=== PATIENT | female | born 2000 | race Caucasian/White ===

== ENCOUNTER 2020-11-18 11:31 | Emergency (ER) | payer OTHER, SELFPAY ==
--- NOTE | ~2020-11-18 | CT_ITS ---
EXAMINATION: CT abdomen pelvis w con INDICATION: Post coital pelvic pain TECHNIQUE: Computed tomographic images of the abdomen and pelvis were obtained after the administrati on of 100 cc of Omnipaque 350 intravenous contrast. The dose-length product (DLP) was 219.51 mGy-cm. Automated exposure control and iterative reconstruction technique were employed. COMPARISON: None available FINDINGS: The lung bases are clear. The heart size is normal. The liver, spleen, pancreas, gallbladde r, and adrenal glands are normal. The kidneys are unremarkable. No pathologically enlarged abdominal or pelvic lymph nodes are identified. There is no free intraperitoneal gas or evidence of bowel obstr uction. A septate uterus is noted. There is a small amount of free fluid in the pelvis, likely physio logic. IMPRESSION: 1. No CT correlate for the patient's symptoms. Reviewed, dictated and finalized at location A.
--- NOTE | ~2020-11-18 | US_ITS ---
EXAMINATION: US pelvic complete w TV DATE: 11/18/2020 15:45 INDICATION: Postcoital pelvic pain and vaginal bleeding TECHNIQUE: Multiple transabdominal and endovaginal sonographic images of the pelvis were obtained. COMPARISON: None. FINDINGS: The uterus measures 7.3 x 3.7 x 6.0 cm and appears to be septate. The endometrial complexes measure 5 mm. The right ovary measures 2.9 x 2.2 x 2.1 cm. The left ovary measures 4.0 x 1.7 x 1.6 c m. There is normal vascular flow in the ovaries. There is a small amount of likely physiologic free f luid in the pelvis. IMPRESSION: 1. No sonographic correlate for the patient's symptoms. 2. Septate uterus. Reviewed, dictated and finalized at location A.
[2020-11-18 11:49] VITALS: BP 116/65; PULSE 60; RESP 20; TEMP 37.2; O2SAT 100
[2020-11-18 12:10] LABS: Basophils Percent Auto 0.4 % (0.2-1.2); Eosinophils Absolute Auto 0.1 K/mm3 (0-0.3); Eosinophils Percent Auto 0.5 % (0-4.4); Hematocrit 41.5 % (37.0-47.0); Hemoglobin 13.9 g/dL (12.0-15.0); Immature Granulocyte Absolute 0.04 K/mm3 (0.00-0.031); Immature Granulocyte Percent A 0.4 % (0-0.5); Lymphocytes Absolute Auto 1.49 K/mm3 (0.9-3.2); Lymphocytes Percent Auto 15.4 % (18.3-44.2); Mean Corpuscular HGB Conc 33.5 g/dl (32-36); Mean Corpuscular Hemoglobin 30.2 pg (26-34); Mean Corpuscular Volume 90.2 fl (80-100); Mean Platelet Volume 10.4 fl (7.4-10.4); Monocytes Absolute Auto 0.5 K/mm3 (0.1-0.6); Neutrophils Absolute Auto 7.6 K/mm3 (1.3-6.7); Neutrophils Percent Auto 78.3 % (45.5-73.1); Platelet Count Result 268 k/mm3 (150-375); Red Cell Distribution Width 12.5 % (11.5-14.5); White Blood Count 9.7 K/mm3 (4.5-10.0)
[2020-11-18 12:23] LABS: Alanine Aminotransferase 18 U/L (4-35); Albumin Level 4.4 g/dL (3.5-5.1); Alkaline Phosphatase 40 U/L (38-126); Anion Gap 10 mmol/L (8-16); Aspartate Amino Transferase 24 U/L (14-36); Bilirubin,Total 0.6 mg/dL (0.2-1.3); Blood Urea Nitrogen 10 mg/dL (7-17); Calcium 9.4 mg/dL (8.4-10.2); Carbon Dioxide 21 mmol/L (22-30); Chloride 107 mmol/L (98-107); Estimated CRCL calculation 128 ml/min; Estimated Glomerular Filt Rate > 60; Glucose 86 mg/dL (65-110); Lipase 45 U/L (23-300); Potassium 4.2 mmol/L (3.4-5.0); Sodium 138 mmol/L (137-145)
[2020-11-18 14:35] LABS: Add Urine Microscopic? YES; Appearance Urine Cloudy (Clear); Bilirubin Urine Negative (Negative); Blood Urine 3+ (Negative); Color Urine Red (Yellow); Glucose Urine UA Negative (Negative); Ketones Urine 1+ mg/dL (Negative); Leukocyte Esterase Ur 1+ LEU/UL (Negative); Nitrate Urine Negative (Negative); Protein Urine 2+ mg/dL (Negative); RBC Urine >75 /hpf (0-2); Specific Grav Ur 1.028 (1.001-1.035); Urobilinogen Urine Negative mg/dL (<2.0); WBC Urine 31-50 /hpf
--- NOTE | 2020-11-18 14:50 | PC.NURSE ---
pt refusing iv placement, wanting to leave . provider aware nno. pt willing to talk to provider
[2020-11-18 15:10] VITALS: BP 119/66; PULSE 98; RESP 17; O2SAT 100
[2020-11-18 16:30] LABS: Pregnancy On Board Control Positive; Urine Pregnancy Test Negative
--- NOTE | 2020-11-18 16:44 | ED.ABDPAIN ---
HPI - Abdominal Pain General Chief Complaint: Abdominal Pain Stated Complaint: abdominal pain Time Seen by Provider: 11/18/20 13:18 Source: patient and RN notes reviewed Mode of arrival: ambulatory Limitations: no limitations History of Present Illness HPI narrative: Patient is 20 years old white female presented to the ED with lower abdominal pain and vaginal bleeding few minutes after having vaginal intercourse. Patient reported history of ovarian cyst. Patient denies any fever, chills, nausea, vomiting, urinary symptoms. Last menstrual. About 1-1/2-month ago. Patient is not vaccinated for COVID-19. Review of Systems Review of Systems: CONSTITUTIONAL: Denies fever, chills, or sweats. EYES: Denies visual changes, redness, or discharge. ENT: Denies rhinorrhea, congestion, sore throat, or otalgia. CARDIOVASCULAR: Denies chest pain, palpitations, or edema. RESPIRATORY: Denies cough or dyspnea. GASTROINTESTINAL: Denies abdominal pain, nausea, vomiting, or diarrhea. GENITOURINARY: Denies dysuria or hematuria. SKIN: Denies rash or itching. MUSCULOSKELETAL: Denies back pain, joint pain, or myalgia. NEUROLOGIC: Denies headache, numbness, or weakness. PSYCHIATRIC: Denies anxiety or depression. PMFSH Social History Social History Gender identity (if verbalized by the patient): Female Exam Narrative: General appearance: Well-developed, well-nourished Skin: Normal color Head: Normocephalic, nontraumatic Eyes: Clear conjunctiva ENT: Oropharynx normal, ears normal, nose normal Neck: Supple, nontender Chest and respiratory: Airway patent, no respiratory distress, no accessory muscle use Heart: Regular rate/rhythm Abdomen: Soft, slight tenderness lower abdomen bilaterally, no guarding or rebound, no organomegaly, quiet bowel sounds Vascular: Normal peripheral pulses, normal capillary refill. Musculoskeletal: Normal range of motion, nontender back Neurologic: Alert and oriented ?3, WAITER/WAITRESS HEAD is normal as tested, no gross motor deficit : External Female Exam: normal external appearance and normal appearance of the urethra Speculum Exam - Vagina: normal appearance of the vagina and vaginal bleeding (Fresh red bright blood, 1 long Q-tip was enough to dry the whole vaginal ) Speculum Exam - Cervix: normal appearance of the cervix, normal palpation and Cervical os closed Bimanual exam- vagina & uterus: normal bimanual exam Course Course Emergency Course: Stable Vital Signs Vital signs: Vital Signs Temperature 37.2 C 11/18/20 11:49 Pulse Rate 60 11/18/20 11:49 Respiratory Rate 20 11/18/20 11:49 Blood Pressure 116/65 11/18/20 11:49 Pulse Oximetry 100 11/18/20 11:49 Temperature 37.2 C 11/18/20 11:49 Pulse Rate 78 11/18/20 16:58 Respiratory Rate 16 11/18/20 16:58 Blood Pressure 124/68 11/18/20 16:58 Pulse Oximetry 98 11/18/20 16:58 MDM - Abdominal Pain MDM Narrative Medical decision making narrative: Patient presents with vaginal bleeding and lower abdominal pain few minutes after having vaginal intercourse. Last menstrual period over 1 and half month ago. , miscarriage, ectopic , dysmenorrhea are my concern. Patient is telling me that she have history of painful menstruation for years. Labs, IV fluid, CT abdomen pelvis with IV contrast ordered Differential Diagnosis Differential diagnosis: Likely abdominal pain, acute appendicitis, constipation and diverticulitis Lab Data Result diagrams: 11/18/20 12:00 11/18/20 12:00 Labs: Lab Results 11/18/20 11/18/20 11/18/20 Range/Units 12:00 12:00 14:16 WBC 9.7 (4.5-10.0) K/mm3
[2020-11-18 16:58] VITALS: BP 124/68; PULSE 78; RESP 16; O2SAT 98
--- NOTE | 2020-11-18 17:01 | PC.NURSE ---
pt accepting of iv placment for ct scan. placed in right ac. call to ct scan, will be here shortly to take the pt
[2020-11-18 18:54] VITALS: BP 136/84; PULSE 84; RESP 16; O2SAT 99
== END 2020-11-18 18:54 | disposition home or self-care (01) ==
PROVIDERS: Emergency Provider Emergency Medicine
DX: N39.0 Urinary tract infection, site not specified (principal); N93.8 Other specified abnormal uterine and vaginal bleeding; Q51.28 Other and unspecified doubling of uterus
CPT/HCPCS: 36415; 74177; 76830; 76856; 80053; 81001; 81025; 83690; 85025; 87086; 87088; 99284; Q9967

== ENCOUNTER 2021-04-23 18:33 | Emergency (ER) | payer OTHER, SELFPAY ==
[2021-04-23 18:36] VITALS: BP 100/59; PULSE 128; RESP 20; TEMP 36.5; O2SAT 100
[2021-04-23 20:33] VITALS: BP 109/77; PULSE 126; RESP 20; TEMP 37.2; O2SAT 100
--- NOTE | 2021-04-23 20:50 | PC.NURSE ---
Pt ambulates out of ED prior to seeing provider around 2049. No sign of distress at this time.
== END 2021-04-23 23:02 | disposition left against medical advice (07) ==
LOC: ANHED 23:00
DX: O26.891 Other specified pregnancy related conditions, first trimester (principal); R10.9 Unspecified abdominal pain
CPT/HCPCS: 99199

== ENCOUNTER 2021-10-31 06:31 | Inpatient (IN) | payer OTHER, SELFPAY ==
[2021-10-31] VITALS (88 sets, daily range): BP systolic 74–131; BP diastolic 27–104; PULSE 55–145; RESP 16–18; TEMP 36.7–37.1; O2SAT 96–100; BMI 23.8
--- OUTSIDE RECORDS SUMMARY | 2021-10-31 06:37 | XMS_ITS | Encounter Summary ---
:2000 Author Reason for Visit OB visit Assessment and Plan 1. Routine care Discussion Note: None recorded.Patient educational handouts: No information available. Plan of Care Reminders Provider Appointments None recorded. ? ? Lab None recorded. ? ? Referral None recorded. ? ? Procedures None recorded. ? ? Surgeries None recorded. ? ? Imaging None recorded. ? ? Medications Name Start Date ? ? ? Medications Administered None recorded. Vitals Height Weight BMI Blood Pressure 5 ft 6.5 in 157 lbs 25 kg/m2 103/72 mm[Hg] Results Lab Results None recorded. Allergies Code Code System Name Reaction Severity Onset NKDA ? ? ? Problems Name Status Onset Date Source ? Active 10/15/2021 ? Procedures Date Name Performed by ? 10/17/2021 , Obstetric, Follow-up [facility] [address] [place] [address] (Work Place) Vaccine List None recorded. Social History Tobacco Smoking Status Former Smoker What type of diet are you following? REGULAR Do you have difficulty walking or N climbing stairs? Are you able to walk? YESWOREST Has tobacco cessation counseling been N provided? Are you able to care for yourself? Y Have you used IV drugs? N
--- OUTSIDE RECORDS SUMMARY | 2021-10-31 06:38 | XMS_ITS | Encounter Summary ---
:2000 Author Reason for Visit new OB NEW PATIENT NEW OB [id number] EDC 11/07/2021 LMP 12/23/2020 Assessment and Plan 1. Routine care Discussion [...] BMI Blood Pressure 5 ft 6.5 in 159 lbs 25.3 kg/m2 113/76 mm[Hg] Results Lab Results None recorded. Allergies Code Code System Name Reaction Severity Onset NKDA ? ? ? Problems Name Status Onset Date Source ? Active 10/15/2021 ? Procedures None recorded. Vaccine List None recorded. Social History Tobacco Smoking Status Former Smoker What type of diet are you following? REGULAR Do you have difficulty walking or N climbing stairs? Are you able to walk? YESWOREST Has tobacco cessation counseling been N provided? Are you able to care for yourself? Y Have you used IV drugs? N Are you blind or do you have N difficulty seeing? Do you have smoke and carbon monoxide Y detectors in your home? In t
--- OUTSIDE RECORDS SUMMARY | 2021-10-31 06:38 | XMS_ITS | Encounter Summary ---
:2000 Author Reason for Visit None recorded. Assessment and Plan 1. Uterine size for dates discrepancy ? US, obstetric, follow-up Discussion Note: None recorded.Patient educational handouts: No information available. Plan of Care Reminders Provider Appointments None recorded. ? ? Lab None recorded. ? ? Referral None recorded. ? ? Procedures None recorded. ? ? Surgeries None recorded. ? ? Imaging US, Obstetric, Follow-up 10/17/2021 Bradly allen Medications Name Start Date ? ? ? Medications Administered None recorded. Vitals None recorded. Results Lab Results None recorded. Allergies Code Code System Name Reaction Severity Onset NKDA ? ? ? Problems Name Status Onset Date Source ? Active 10/15/2021 ? Procedures Date Name Performed by ? 10/17/2021 US, Obstetric, Follow-up [facility] [address] [place] [address] (Work Place) Vaccine List None recorded. Social History Tobacco Smoking Status Former Smoker What type of diet are you following? REGULAR Do you have difficulty walking or N climbing stairs? Are you able to walk? YESWOREST Has tobacco cessation counseling been N provided? Are you able to care for yourself? Y Have you used IV drugs? N Are you b
--- OUTSIDE RECORDS SUMMARY | 2021-10-31 06:38 | XMS_ITS | Encounter Summary ---
[...] ft 6.5 in 159 lbs 25.3 kg/m2 103/71 mm[Hg] Results Lab Results None recorded. Allergies Code Code System Name Reaction Severity Onset NKDA ? ? ? Problems Name Status Onset Date Source ? Active 10/15/2021 ? Procedures Date Name Performed by ? 10/17/2021 , Obstetric, Follow-up [facility] [address] [place] [address] (Work Place) Vaccine List [...]
[2021-10-31 07:13] LABS: Basophils Percent Auto 0.3 % (0.2-1.2); Eosinophils Percent Auto 0.5 % (0-4.4); Hematocrit 38.7 % (37.0-47.0); Hemoglobin 13.2 g/dL (12.0-15.0); Immature Granulocyte Absolute 0.02 K/mm3 (0.00-0.031); Immature Granulocyte Percent A 0.3 % (0-0.5); Lymphocytes Absolute Auto 1.81 K/mm3 (0.9-3.2); Mean Corpuscular HGB Conc 34.1 g/dl (32-36); Mean Corpuscular Volume 90.8 fl (80-100); Mean Platelet Volume 10.9 fl (7.4-10.4); Monocytes Absolute Auto 0.4 K/mm3 (0.1-0.6); Monocytes Percent Auto 5.8 % (2.6-8.5); Neutrophils Absolute Auto 5.2 K/mm3 (1.3-6.7); Neutrophils Percent Auto 69.1 % (45.5-73.1); Platelet Count Result 192 k/mm3 (150-375); Red Blood Count 4.26 M/mm3 (4.2-5.4); Red Cell Distribution Width 14.2 % (11.5-14.5); White Blood Count 7.5 K/mm3 (4.5-10.0)
--- NOTE | 2021-10-31 07:29 | WPDOBADMIT ---
Obstetrics - Admit Note Admission Note: record reviewed. No pertinent additions to the history and/or any subsequent changes in the physical findings that are not consistent with the expected course of the were found. IOL SVE /-2 AROM moderate amount of clear odorless fluid Additions to the history and/or subsequent changes in the physical findings follow. None.
[2021-10-31] MEDS: OXYTOCIN 30 UNITS/NS 500 ML 30 UNITS/500 ML BAG 6 UNITS IV CONT (08:04)
[2021-10-31] MEDS: LACTATED RINGERS 1,000 ML 125 ML IV CONT ×2 (08:04→10:30)
--- NOTE | 2021-10-31 09:01 | WPDANESEPP ---
Anes - Eval Pre Procedure Procedure: labor epidural Date/Time: 10/31/21 09:01 Surgeon: sunny Preop Diagnosis: pain during labor Pre Op Diagnosis: IOL Patient Data Age: 21 Gender: F Height: 1.73 m Weight: 71 kg Last Vital Signs Temp 36.9 C 10/31/21 07:30 Pulse 57 L 10/31/21 09:00 BP 119/75 10/31/21 09:00 Allergies Allergy/AdvReac Type Severity Reaction Status Date / Time No Known Allergies Allergy Verified 10/30/21 12:55 Home Medications Medication Instructions Recorded Confirmed Type vit no.95-ferrous 1 tablet PO DAILY 10/31/21 10/31/21 History fumarate 28 mg-folic acid 800 mcg tablet () Laboratory Tests 10/31/21 10/31/21 10/31/21 06:52 06:52 06:52 WBC 7.5 K/mm3 K/mm3 (4.5-10.0) RBC 4.26 M/mm3 M/mm3 (4.2-5.4) Hgb 13.2 g/dL g/dL (12.0-15.0) Hct 38.7 % % (37.0-47.0) MCV 90.8 fl fl (80-100) MCH 31.0 pg pg (26-34) MCHC 34.1 g/dl g/dl (32-36) RDW 14.2 % % (11.5-14.5) Plt Count 192 k/mm3 k/mm3 (150-375) MPV 10.9 fl H fl (7.4-10.4) Immature Gran % (Auto) 0.3 % % (0-0.5) Neut % (Auto) 69.1 % % (45.5-73.1) Lymph % (Auto) 24.0 % % (18.3-44.2) [place] % (Auto) 5.8 % % (2.6-8.5) Eos % (Auto) 0.5 % % (0-4.4) Baso % (Auto) 0.3 % % (0.2-1.2) Lymph # (Auto) 1.81 K/mm3 K/mm3 (0.9-3.2) [place] # (Auto) 0.4 K/mm3 K/mm3 (0.1-0.6) Eos # (Auto) 0.0 K/mm3 K/mm3 (0-0.3) Baso # (Auto) 0.0 K/mm3 K/mm3 (0.0-0.1) Abs Immat Gran (auto) 0.02 K/mm3 K/mm3 (0.00-0.031) Absolute Neuts (auto) 5.2 K/mm3 K/mm3 (1.3-6.7) Absolute Nucleated RBC 0.0 K/mm3 K/mm3 (0.0-0.012) Nucleated RBC % 0.0 % % (0.0-0.2) RPR Pending Blood Type A Positive Antibody Screen Negative Patient hx anesthesia problems: none Family hx anesthesia problems: none Results Review: All pre-operative results and documents have been reviewed as part of the pre-operative evaluation. COUNTS INCLUDE 234 BEDS AT THE [facility] Past Medical History Medical History (Updated 10/31/21 @ 09:01 by Jyoti Gilbert CRNA) IUP (intrauterine ), incidental Family History Family History (Updated 10/30/21 @ 12:57 by Alexandrea Streeter RN) Mother History of blood clots Social History Social History Smoking status: Former smoker Tobacco type: cigarettes Second hand tobacco smoke exposure: Yes Substance use: never Gender identity (if verbalized by the patient): Female Spiritual care concerns: No Exam Day of Procedure 10/31/21 09:01
[2021-10-31 09:19] LABS: Rapid Plasma Reagin Non-Reactive (NonReactive)
[2021-10-31] MEDS: fentaNYL CITRATE INJ (*CRX) 100 MCG/2 ML VIAL IV PUSH (13:12)
[2021-10-31] MEDS: OXYTOCIN 30 UNITS/NS 500 ML 30 UNITS/500 ML BAG 125 UNITS IV CONT (13:28)
--- NOTE | 2021-10-31 13:52 | PM.OBPRVD ---
OB - Delivery Note Procedure Procedure: with manual removal of placenta Events: Other (Late transfer of care) Induction method: AROM and Per Pitocin Protocol Delivery monitor: External FHT, External Uterine and Internal Uterine Route of delivery: Laceration Description: Perineal - 2nd Degree Delivery repair: vicryl Specimen: Yes Quantitative Blood Loss (ml): 449 Anesthesia type: Epidural Disposition: Floor Complications: Gush of blood noted that seemed to indicate placental separation. Gentle traction applied and cord was detached. Small fragments of placenta and membranes came out. Manual removal attempted. 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 Difficulty getting to fundus. Small fragments coming out. Dr Porras called for assistance. Once in the room he was able to remove the rest of the placenta after a few attempts and use of curette. Pt's pain well controlled. Bleeding minimal during entire process. Once placenta was removed I took back over to complete repair of laceration. Fundus remained firm and bleeding scant. Baby Date of : 10/31/21 Weeks of gestation at delivery: 39 Infant gender: Female Weight (pounds): 7 Weight (ounces): 0 presentation: vertex position: Left Occiput Anterior Placenta delivery description: Spontaneous Cord Vessel Description: Delayed Cord Clamping
[2021-10-31] MEDS: cefoTEtan DISODIUM INJ 2 GM in DEXTROSE 5% IN WATER 50 ML IVPB (14:34)
--- NOTE | 2021-10-31 16:55 | PC.NURSE ---
Patient transferred to post room #281 via wheelchair. Support person present. Oriented to unit, room, information board, rooming in, admission packet and security measures. Patient verbalizes understanding.
[2021-10-31] MEDS: BENZOCAINE 20% AER SPR (*SP) 56 GM CAN 1 SPRAY TOPICAL (17:05)
[2021-10-31] MEDS: WITCH HAZEL 40 PADS 1 PAD TOPICAL (17:06)
[2021-11-01] MEDS: IBUPROFEN 600 MG TABLET PO ×2 (00:45→09:40)
[2021-11-01 01:30] VITALS: BP 90/56; PULSE 75; RESP 18; TEMP 36.6
[2021-11-01] MEDS: cefoTEtan DISODIUM INJ 2 GM in DEXTROSE 5% IN WATER 50 ML IVPB ×2 (02:32→14:20)
[2021-11-01] MEDS: SODIUM CHLORIDE 0.9% IV 100 ML 200 ML (02:33)
[2021-11-01 04:25] VITALS: BP 84/51; PULSE 50; RESP 16; TEMP 36.4
[2021-11-01 05:11] LABS: Hematocrit 33.7 % (37.0-47.0); Hemoglobin 11.2 g/dL (12.0-15.0)
--- NOTE | 2021-11-01 08:41 | PC.NURSE ---
0830 - At 0822 is at the nurses desk. 0830 RN takes infant to the mother's room to assess mother's feeding plan. Introductions were made, I.D. # matched with mother. Mother states she desires to breastfeed and states I didn't know what to say at the preadmit so I said bottle feed . Mother demonstrates unfamiliarity of moving and holding her infant. Encouraged understanding of the benefits of skin to skin (unwrapping and placing vertically on her chest), responsive feeding and how to watch for early feeding signs, frequency of feeding on demand about every 8-12 times in 24 hours (every 2-3 hours), milk production, duration of feeding, signs of adequate intake/output and how to record on the feeding sheet. Reviewed positioning and ear, shoulder, hip alignment, supporting the breast, asymmetrical latch (off-center), and leading with the chin with a big open side gape. latched optimally to the right breast in football position. Education given to mother of how to visualize suck/swallow ratios and drinking at the breast. Infant was able to maintain latch without discomfort to mother. Nipple care reviewed with optimal latch and good positioning with assistance. Resources used to facilitate learning were used with the mom and baby guide. Mother voiced understanding of responsive feedings, stimulating with skin to skin, talking to infant to encourage if it has been 2 -3 hours since the start of the last , to call if infant does not latch or there is discomfort with . Education reinforcement and encouragement is needed. Reported to the primary RN.
[2021-11-01 09:05] VITALS: BP 101/61; PULSE 60; RESP 16; TEMP 36.4; O2SAT 99
[2021-11-01] MEDS: MULTIVIT/MIN/PREN/FOL AC/IRON TABLET 1 TAB PO (09:40)
[2021-11-01] MEDS: DOCUSATE SODIUM 100 MG CAPSULE PO (09:40)
[2021-11-01 12:01] VITALS: BP 100/71; PULSE 92; RESP 18; TEMP 36.8; O2SAT 99
--- NOTE | 2021-11-01 12:43 | WPDANLDPN2 ---
Anes-Prog Note L&D Date/Time: 11/01/21 12:43 Comfortable throughout: labor Neuraxial method: epidural Epidural/Spinal procedure site: tender Neuro status: Neuro function grossly intact. Cardiovascular status: normal Respiratory status: normal Airway patency: baseline Mental status: baseline Post-Op hydration status: normal Vital Signs: Last Vital Signs Temp 98.2 F 11/01/21 12:01 Pulse 92 11/01/21 12:01 Resp 18 11/01/21 12:01 BP 100/71 11/01/21 12:01 Pulse Ox 99 11/01/21 12:01 O2 Del Method Room Air 10/31/21 17:05 Pain score (VAS): 0 I/O: Intake & Output 10/31/21 11/01/21 11/01/21 23:59 07:59 15:59 Intake Total 2240 80 240 Output Total 85 Balance 2155 80 240 Patient feedback: Patient satisfied with anesthetic care.
--- NOTE | 2021-11-01 15:18 | PCCCNOTE ---
Care Coordination met with pt., FOB, and pt.'s mother. Pt. states her current D/C plan is to return home with FOB. Pt. is independent with ADLs and ambulation. Pt. has no medical equipment at home. She has everything needed to safely bring baby home. Pt. states interest in breast feeding, CC answered questions regarding WIC and obtaining a breast pump. Pt. denies any open or prior DCFS cases. Pt. and FOB of baby have been appropriate during hospitalization and are bonding well with baby. Pt.'s RN had concerns regarding pt.'s flat affect, CC has no further concerns at this time.
[2021-11-01 19:00] VITALS: BP 96/66; PULSE 70; RESP 14; TEMP 36.8; O2SAT 100
[2021-11-02] MEDS: IBUPROFEN 600 MG TABLET PO (04:48)
--- NOTE | 2021-11-02 07:34 | PM.OBPNVD ---
OB - PN: Subj Subjective Date/time seen: 11/02/21 07:34 s/p day 2 vaginal delivery OB - PN: Obj Data Labs CBC & Chem 7: 11/01/21 04:36 OB - PN A/P Plan day: 2 Time Spent With Patient Time: Total time spent is greater than 50% in coordination of care (as documented) at patient's floor/unit and/or counseling patient: Review of Systems Review of Systems: All systems reviewed & are unremarkable except as noted in HPI and below Exam Const: General: cooperative, healthy appearing and comfortable
--- NOTE | 2021-11-02 07:35 | P.DS_ITS ---
DS: Admitting Diagnosis Discharge Date 11/02/21 Admitting Diagnosis IOL OB - DS: Summary OB Procedures : None OB Procedures Intrapartum: Spontaneous Vag Delivery, Curettage and Retained placenta OB Procedures: : None Time Spent with Patient Time attestation: Total time spent providing and/or coordinating discharge services: DS: Data Data Completed and Pending Pending studies at discharge: Pending at discharge 10/31/21 14:52 Surgical [PTH] Routine Discharge Plan Discharge Attending physician on discharge: Day Porras Discharging Clinician: Johana Clark Patient Disposition: Home, Self-Care Activity: pelvic rest Diet: regular Stand Alone Forms: General Discharge Information Follow-up/Referrals: Maite Esposito CNM [Certified Nurse Blood Bank Specialist] - 4 Weeks Discharge Medications: No Action PNV cmb#95-ferrous fumarate-FA [] 28 mg iron- 800 mcg Tablet 1 tablet PO DAILY Date of admission: 10/31/21 06:31 Primary Care Provider: PHYSICIAN,LICENSED PROSTHETIST Admitting Provider: Day Porras Attending physician on admission: Day Porras Condition: Stable
[2021-11-02 08:00] VITALS: BP 100/62; PULSE 60; RESP 16; TEMP 36.6; O2SAT 100
--- NOTE | 2021-11-02 09:00 | PC.NURSE ---
Patient viewed the discharge video Mother & Baby Care, The First Two Weeks . Patient was given the opportunity and encouraged to ask questions. Patient verbalized understanding of information shared and has been given the mother/baby guide for home reference.
[2021-11-02] MEDS: DOCUSATE SODIUM 100 MG CAPSULE PO (09:04)
[2021-11-02] MEDS: MULTIVIT/MIN/PREN/FOL AC/IRON TABLET 1 TAB PO (09:05)
[2021-11-05 11:27] VITALS: BP 101/68; PULSE 78; RESP 16; TEMP 36.8; O2SAT 99
== END 2021-11-02 12:43 | disposition home or self-care (01) | DRG 541 ==
LOC: ANHLDR 06:44 → ANHOB2 16:56
PROVIDERS: Advanced Practice Midwife; Admitting Provider Obstetrics & Gynecology; Visit Provider Obstetrics & Gynecology
DX: O69.81X0 Labor and delivery complicated by cord around neck, without compression, not applicable or unspecified (principal); O34.03 Maternal care for unspecified congenital malformation of uterus, third trimester; O70.1 Second degree perineal laceration during delivery; Q51.3 Bicornate uterus; O73.0 Retained placenta without hemorrhage; Z3A.39 39 weeks gestation of pregnancy; Z37.0 Single live birth
CPT/HCPCS: 36415; 85014; 85018; 85025; 86592; 86850; 86900; 86901; 88307; A9270; J2590; J2795; J3010; J7120

== ENCOUNTER 2023-08-23 11:26 | Inpatient (IN) | payer OTHER, SELFPAY ==
[2023-08-23] VITALS (125 sets, daily range): BP systolic 89–145; BP diastolic 44–122; PULSE 52–162; RESP 18; TEMP 36.4–36.7; O2SAT 95–100; BMI 25.0
[2023-08-23] MEDS: LACTATED RINGERS 1,000 ML 125 ML IV CONT ×2 (12:01→12:38)
[2023-08-23 12:05] LABS: Basophils Percent Auto 0.4 % (0.2-1.2); Eosinophils Percent Auto 0.3 % (0-4.4); Hematocrit 39.8 % (37.0-47.0); Hemoglobin 13.3 g/dL (12.0-15.0); Immature Granulocyte Absolute 0.04 K/mm3 (0.00-0.031); Immature Granulocyte Percent A 0.4 % (0-0.5); Lymphocytes Absolute Auto 1.82 K/mm3 (0.9-3.2); Lymphocytes Percent Auto 20.1 % (18.3-44.2); Mean Corpuscular HGB Conc 33.4 g/dl (32-36); Mean Corpuscular Hemoglobin 30.4 pg (26-34); Mean Corpuscular Volume 90.9 fl (80-100); Monocytes Absolute Auto 0.7 K/mm3 (0.1-0.6); Monocytes Percent Auto 7.2 % (2.6-8.5); Neutrophils Absolute Auto 6.5 K/mm3 (1.3-6.7); Neutrophils Percent Auto 71.6 % (45.5-73.1); Platelet Count Result 183 k/mm3 (150-375); Red Blood Count 4.38 M/mm3 (4.2-5.4); Red Cell Distribution Width 13.6 % (11.5-14.5)
[2023-08-23] MEDS: fentaNYL CITRATE INJ (*CRX) 100 MCG/2 ML VIAL IV PUSH (12:11)
--- NOTE | 2023-08-23 12:16 | LDADM ---
This patient, Den Swan, was admitted to Labor/Delivery/Recovery 105 on 08/23/23 at 11:26. Plans for labor, pain management and were discussed with patient. Patient/family oriented to hospital policies and general routines including ID bracelet, bed and alarms, visiting hours, pain management, procedures, bathroom and other care routines, personal items, smoking policy, room service/diet and guest tray routines, infant security routines, and visiting hours. Patient/Family are encouraged to report perceived risks to care and to ask questions if they do not understand what they are told or what they should do. See OBIX for further documentation.
--- NOTE | 2023-08-23 12:43 | WPDANESEPP ---
Anes - Eval Pre Procedure Procedure: labor epidural Date/Time: 08/23/23 12:43 Preop Diagnosis: labor pain Pre Op Diagnosis: Spontaneous Labor Patient Data Age: 23 Gender: F Height: 1.75 m Weight: 77 kg Last Vital Signs Pulse 65 08/23/23 12:40 BP 110/76 08/23/23 12:40 Pulse Ox 99 08/23/23 12:41 O2 Del Method Room Air 08/23/23 12:14 Allergies Allergy/AdvReac Type Severity Reaction Status Date / Time No Known Allergies Allergy Verified 08/23/23 12:40 Home Medications Medication Instructions Recorded Confirmed Type vit no.95-ferrous 1 tablet PO BID 10/31/21 08/23/23 History fumarate 28 mg-folic acid 800 mcg tablet () lidocaine 4 % topical patch 1 patch topical DAILY PRN Pain 08/22/23 08/23/23 History (Lidocaine Pain Relief) Laboratory Tests 08/23/23 11:53 WBC 9.0 K/mm3 (4.5-10.0) RBC 4.38 M/mm3 (4.2-5.4) Hgb 13.3 g/dL (12.0-15.0) Hct 39.8 % (37.0-47.0) MCV 90.9 fl (80-100) MCH 30.4 pg (26-34) MCHC 33.4 g/dl (32-36) RDW 13.6 % (11.5-14.5) Plt Count 183 k/mm3 (150-375) MPV 12.0 H fl (7.4-10.4) Immature Gran % (Auto) 0.4 % (0-0.5) Neut % (Auto) 71.6 % (45.5-73.1) Lymph % (Auto) 20.1 % (18.3-44.2) [place] % (Auto) 7.2 % (2.6-8.5) Eos % (Auto) 0.3 % (0-4.4) Baso % (Auto) 0.4 % (0.2-1.2) Lymph # (Auto) 1.82 K/mm3 (0.9-3.2) [place] # (Auto) 0.7 H K/mm3 (0.1-0.6) Eos # (Auto) 0.0 K/mm3 (0-0.3) Baso # (Auto) 0.0 K/mm3 (0.0-0.1) Abs Immat Gran (auto) 0.04 H K/mm3 (0.00-0.031) Absolute Neuts (auto) 6.5 K/mm3 (1.3-6.7) Absolute Nucleated RBC 0.000 K/mm3 (0.0-0.012) Nucleated RBC % 0.0 % (0.0-0.2) RPR Pending Blood Type Pending Antibody Screen Pending Patient hx anesthesia problems: none Family hx anesthesia problems: none Results Review: All pre-operative results and documents have been reviewed as part of the pre-operative evaluation. [facility] Past Medical History Medical History IUP (intrauterine ), incidental Family History Family History Mother History of blood clots Social History Social History Smoking status: Never smoker Tobacco type: cigarettes Second hand tobacco smoke exposure: Yes Substance use: never Do You Feel Safe in your Home?: Yes Lack of Transportation: No Lack of Food: Never True Current Housing: I Have Housing Concerned About Future Housing: No Difficulty Paying Gas/Electric Bills: No Difficulty Paying for Meds: No Currently Unemployed: No Education: High School Diploma/GED Difficulty w/ Childcare or Family Care: No Gender identity (if verbalized by the patient): Female Spiritual care concerns: No Exam Day of Procedure 08/23/23 12:43
--- NOTE | 2023-08-23 15:24 | PM.IMHP ---
H&P: HPI History of Present Illness Date/Time: 08/23/23 15:24 Chief Complaint: Regular contractions Narrative: Patient is a 23 year old at 39w0d who presents with regular painful contractions after SROM of clear fluid at 1100. She denies bleeding. Good movement. has been uncomplicated otherwise. She denies fevers, chills, dysuria. Review of Systems Review of Systems: All systems reviewed & are unremarkable except as noted in HPI and below PMFSH Past Medical History Medical History IUP (intrauterine ), incidental Family History Family History Mother History of blood clots Social History Social History Smoking status: Never smoker Tobacco type: cigarettes Second hand tobacco smoke exposure: Yes Substance use: never Do You Feel Safe in your Home?: Yes Lack of Transportation: No Lack of Food: Never True Current Housing: I Have Housing Concerned About Future Housing: No Difficulty Paying Gas/Electric Bills: No Difficulty Paying for Meds: No Currently Unemployed: No Education: High School Diploma/GED Difficulty w/ Childcare or Family Care: No Gender identity (if verbalized by the patient): Female Spiritual care concerns: No Meds Home Medications and Allergies Home Medications Medication Instructions Recorded Confirmed Type vit no.95-ferrous 1 tablet PO BID 10/31/21 08/23/23 History fumarate 28 mg-folic acid 800 mcg tablet () lidocaine 4 % topical patch 1 patch topical DAILY PRN Pain 08/22/23 08/23/23 History (Lidocaine Pain Relief) Allergies Allergy/AdvReac Type Severity Reaction Status Date / Time No Known Allergies Allergy Verified 08/23/23 12:40 Vital Signs Vital Signs - 24 hr 08/23/23 12:00 08/23/23 12:14 08/23/23 12:15 Temperature Pulse Rate 61 77 75 Blood Pressure 118/78 104/83 108/82 Pulse Oximetry Oxygen Delivery 08/23/23 12:33 08/23/23 12:36 08/23/23 12:38 Temperature Pulse Rate 69 69 Blood Pressure 116/72 120/74 Pulse Oximetry 100 Oxygen Delivery 08/23/23 12:40 08/23/23 12:41 08/23/23 12:42 Temperature Pulse Rate 65 65 Blood Pressure 110/76 112/72 Pulse Oximetry 99 Oxygen Delivery 08/23/23 12:45 08/23/23 12:46 08/23/23 12:47 Temperature Pulse Rate 68 64 Blood Pressure 116/96 H 121/78 Pulse Oximetry 100 Oxygen Delivery 08/23/23 12:50 08/23/23 12:52 08/23/23 12:52 Temperature Pulse Rate 71 Blood Pressure 119/77 Pulse Oximetry 99 99 99 Oxygen Delivery 08/23/23 12:52 08/23/23 12:52 08/23/23 12:55 Temperature Pulse Rate 65 64 Blood Pressure 117/71 115/71 Pulse Oximetry Oxygen Delivery 08/23/23 12:57 08/23/23 12:58 08/23/23 13:00 Temperature Pulse Rate 68 71 76 Blood Pressure 110/68 114/71 110/45 L Pulse Oximetry 98 Oxygen Delivery 08/23/23 13:02 08/23/23 13:03 08/23/23 13:05 Temperature Pulse Rate 80 74 Blood Pressure 108/47 L 112/72 Pulse Oximetry 98 Oxygen Delivery 08/23/23 13:07 08/23/23 13:10 08/23/23 13:12 Temperature Pulse Rate 78 71 66 Blood Pressure 112/61 111/70 114/63 Pulse Oximetry 98 99 Oxygen Delivery 08/23/23 13:15 08/23/23 13:18 08/23/23 13:20 Temperature Pulse Rate 64 64 65 Blood Pressure 110/77 115/59 L 111/66 Pulse Oximetry 98 100 Oxygen Delivery 08/23/23 13:23 08/23/23 13:25 08/23/23 13:27 Temperature Pulse Rate 84 141 H Blood Pressure 120/93 H 124/59 L 113/86 Pulse Oximetry 100 Oxygen Delivery 08/23/23 13:30 08/23/23 13:30 08/23/23 13:31 Temperature Pulse Rate 85 Blood Pressure 109/55 L Pulse Oximetry 97 97 Oxygen Delivery 08/23/23 13:32 08/23/23 13:35 08/23/23 13:38 Temperature Pulse Rate 68 162 H 78 Blood Pre
[2023-08-23] MEDS: fentaNYL CITRATE INJ (*CRX) 100 MCG/2 ML VIAL 50 MCG IV PUSH (16:09)
[2023-08-23] MEDS: OXYTOCIN 30 UNITS/NS 500 ML 30 UNITS/500 ML BAG 999 UNITS IV CONT (16:11)
--- NOTE | 2023-08-23 16:25 | PM.OBPRVD ---
OB - Vaginal Delivery Note Procedure Delivery date: 08/23/23 Induction method: None Delivery monitor: External FHT and External Uterine Route of delivery: Laceration Description: Perineal - 2nd Degree Delivery repair: vicryl Specimen: No Quantitative Blood Loss (ml): 300 Anesthesia type: Local (and epidural) Disposition: Floor Complications: No immediate complications Narrative: See H&P and notes for details on patient's admission and labor. She progressed to complete cervical dilation and at the appropriate time began pushing. With adequate expulsive efforts by the mother, the baby's head was delivered without difficulty. Nuchal cord was not present. The baby's right shoulder was anterior and delivered under the pubic symphysis without difficulty. The posterior shoulder and the rest of the baby delivered without difficulty. The umbilical cord was doubly clamped and cut after 60 seconds of delayed cord clamping. Care of the infant was then assumed by the nursing staff. Mother and infant are at this time in stable condition and doing well. Baby Date of : 08/23/23 Weeks of gestation at delivery: 39 Infant gender: Male Weight (pounds): 7 Weight (ounces): 14 presentation: vertex position: Left Occiput Anterior Placenta delivery description: Expressed Cord Vessel Description: 3 Vessels
[2023-08-23] MEDS: OXYTOCIN 30 UNITS/NS 500 ML 30 UNITS/500 ML BAG 125 UNITS IV CONT (16:42)
[2023-08-23] MEDS: IBUPROFEN 600 MG TABLET PO ×2 (17:32→23:14)
[2023-08-23] MEDS: ACETAMINOPHEN 325 MG TABLET 650 MG PO ×2 (19:09→23:14)
[2023-08-23] MEDS: WITCH HAZEL 40 PADS 1 PAD TOPICAL (19:10)
[2023-08-23] MEDS: BENZOCAINE 20% AER SPR (*SP) 56 GM CAN 1 SPRAY TOPICAL (19:10)
[2023-08-23 21:56] LABS: Glucose Point of Care 127 mg/dl (65-105)
[2023-08-23] MEDS: oxyCODONE/ACETAMINOPHEN (*CRX) 5-325 MG TABLET 1 TABLET PO (22:20)
[2023-08-24 04:00] VITALS: BP 111/73; PULSE 89; RESP 16; TEMP 36.9
[2023-08-24] MEDS: IBUPROFEN 600 MG TABLET PO ×3 (05:23→23:16)
[2023-08-24] MEDS: ACETAMINOPHEN 325 MG TABLET 650 MG PO ×2 (05:23→13:45)
[2023-08-24 05:47] LABS: Hematocrit 29.8 % (37.0-47.0); Hemoglobin 9.6 g/dL (12.0-15.0)
[2023-08-24 07:45] VITALS: BP 117/77; PULSE 65; RESP 16; TEMP 37; O2SAT 97
--- NOTE | 2023-08-24 08:52 | PM.OBPNVD ---
OB - PN: Subj Subjective Date/time seen: 08/24/23 08:52 Interval history: PPD#1 Doing well, pain improved from last night Voiding without issue Tolerating general diet Ready for discharge home today OB - PN: Obj Data Labs 08/24/23 05:43 Labs: Laboratory Results - last 24 hr 08/23/23 08/23/23 08/24/23 11:53 21:00 05:43 WBC 9.0 RBC 4.38 Hgb 13.3 9.6 L D Hct 39.8 29.8 L MCV 90.9 MCH 30.4 MCHC 33.4 RDW 13.6 Plt Count 183 MPV 12.0 H Immature Gran % (Auto) 0.4 Neut % (Auto) 71.6 Lymph % (Auto) 20.1 [place] % (Auto) 7.2 Eos % (Auto) 0.3 Baso % (Auto) 0.4 Lymph # (Auto) 1.82 [place] # (Auto) 0.7 H Eos # (Auto) 0.0 Baso # (Auto) 0.0 Abs Immat Gran (auto) 0.04 H Absolute Neuts (auto) 6.5 Absolute Nucleated RBC 0.000 Nucleated RBC % 0.0 POC Capillary Glucose 127 H Blood Type A Positive Antibody Screen Negative OB - PN A/P Assessment and Plan (1) (spontaneous vaginal delivery): Code(s): O80 - Encounter for full-term uncomplicated delivery Status: Acute Plan day: 1 Plan: routine care and discharge home Time Spent With Patient Time: Total time spent is greater than 50% in coordination of care (as documented) at patient's floor/unit and/or counseling patient: Review of Systems Review of Systems: All systems reviewed & are unremarkable except as noted in HPI and below Exam Const: General: comfortable and no acute distress Eyes: General: appearance normal, both eyes and all related structures Resp: Effort & Inspection: normal respiratory effort Cardio: Rate: regular rate Rhythm: regular rhythm Skin: General skin exam: normal color Extrem: General: normal to inspection Psych: Mental Status: mental status grossly normal
--- NOTE | 2023-08-24 08:54 | PM.OBDSVD ---
DS: Admitting Diagnosis Discharge Date 08/24/23 Admitting Diagnosis normal labor DS: Discharge Diagnosis Discharge Diagnosis (1) (spontaneous vaginal delivery): Code(s): O80 - Encounter for full-term uncomplicated delivery Status: Acute OB - DS: Summary OB Procedures : None OB Procedures Intrapartum: Spontaneous Vag Delivery OB Procedures: : None Peripartum Data Laceration Description: Perineal - 2nd Degree Time Spent with Patient Time attestation: Total time spent providing and/or coordinating discharge services: DS: Data Data Completed and Pending Labs on day of discharge: Labs from last 24 hours 08/24/23 08/23/23 08/23/23 05:43 21:00 11:53 WBC 9.0 RBC 4.38 Hgb 9.6 L D 13.3 Hct 29.8 L 39.8 MCV 90.9 MCH 30.4 MCHC 33.4 RDW 13.6 Plt Count 183 MPV 12.0 H Immature Gran % (Auto) 0.4 Neut % (Auto) 71.6 Lymph % (Auto) 20.1 [place] % (Auto) 7.2 Eos % (Auto) 0.3 Baso % (Auto) 0.4 Lymph # (Auto) 1.82 [place] # (Auto) 0.7 H Eos # (Auto) 0.0 Baso # (Auto) 0.0 Abs Immat Gran (auto) 0.04 H Absolute Neuts (auto) 6.5 Absolute Nucleated RBC 0.000 Nucleated RBC % 0.0 POC Capillary Glucose 127 H RPR Pending Blood Type A Positive Antibody Screen Negative Discharge Plan Discharge Attending physician on discharge: Jair Varner Discharging Clinician: Jair Varner Patient Disposition: Home, Self-Care Activity: may shower and pelvic rest Diet: as tolerated Patient Instructions: Antibiotic Form Stand Alone Forms: General Discharge Information Follow-up/Referrals: Jair Varner MD [Physician] - 4 Weeks Discharge Medications: New docusate sodium 100 mg Capsule 100 mg PO BID PRN (Reason: Constipation) Qty: 60 0RF ibuprofen 600 mg Tablet 600 mg PO Q6H PRN (Reason: Cramping) Qty: 30 0RF Continued PNV cmb#95-ferrous fumarate-FA [] 28 mg iron- 800 mcg Tablet 1 tablet PO BID lidocaine [Lidocaine Pain Relief] 4 % Adhesive Patch,Medicated 1 patch TOPICAL DAILY PRN (Reason: Pain) Date of admission: 08/23/23 11:26 Primary Care Provider: UNKNOWN,DOCTOR Admitting Provider: Jair Varner Attending physician on admission: Jair Varner Condition: Stable
[2023-08-24] MEDS: POLYSACCHARIDE IRON COMPLEX 150 MG CAPSULE PO (09:27)
[2023-08-24] MEDS: MULTIVIT/MIN/PREN/FOL AC/IRON TABLET 1 TAB PO (09:27)
[2023-08-24] MEDS: DOCUSATE SODIUM 100 MG CAPSULE PO (09:34)
[2023-08-24 13:11] VITALS: BP 121/88; PULSE 65; RESP 18; TEMP 36.8; O2SAT 97
--- NOTE | 2023-08-24 14:58 | WPDANLDPN2 ---
Anes-Prog Note L&D Date/Time: 08/24/23 14:58 Comfortable throughout: labor and delivery Neuraxial method: epidural Epidural/Spinal procedure site: clean & non-tender Neuro status: Neuro function grossly intact. Cardiovascular status: normal Respiratory status: normal Airway patency: baseline Mental status: baseline Post-Op hydration status: normal Vital Signs: Last Vital Signs Temp 36.8 C 08/24/23 13:11 Pulse 65 08/24/23 13:11 Resp 18 08/24/23 13:11 BP 121/88 08/24/23 13:11 Pulse Ox 97 08/24/23 13:11 O2 Del Method Room Air 08/23/23 12:14 Pain score (VAS): 0/10 I/O: Intake & Output 08/23/23 08/24/23 08/24/23 23:59 07:59 15:59 Intake Total 100 Output Total 600 Balance -500 Post-procedural complaints: none Patient feedback: Patient satisfied with anesthetic care.
[2023-08-24 19:00] VITALS: BP 110/70; PULSE 82; RESP 18; TEMP 37.4; O2SAT 98
--- NOTE | 2023-08-25 07:32 | PM.OBPNVD ---
OB - PN: Subj Subjective Date/time seen: 08/25/23 07:32 Interval history: PPD#2 Pain controlled Voiding without issue Tolerating general diet , was cluster feeding overnight Ready for discharge home today OB - PN: Obj Data Labs 08/24/23 05:43 OB - PN A/P Plan day: 2 Plan: routine care and discharge home Time Spent With Patient Time: Total time spent is greater than 50% in coordination of care (as documented) at patient's floor/unit and/or counseling patient: Review of Systems Review of Systems: All systems reviewed & are unremarkable except as noted in HPI and below Exam Const: General: comfortable and no acute distress Eyes: General: appearance normal, both eyes and all related structures Resp: Effort & Inspection: normal respiratory effort Cardio: Rate: regular rate Rhythm: regular rhythm Skin: General skin exam: normal color Extrem: General: normal to inspection Psych: Mental Status: mental status grossly normal
[2023-08-25 07:45] VITALS: BP 104/59; PULSE 61; RESP 18; TEMP 36.9; O2SAT 99
[2023-08-25] MEDS: POLYSACCHARIDE IRON COMPLEX 150 MG CAPSULE PO (07:47)
[2023-08-25] MEDS: IBUPROFEN 600 MG TABLET PO (07:48)
[2023-08-25] MEDS: DOCUSATE SODIUM 100 MG CAPSULE PO (07:48)
[2023-08-25] MEDS: MULTIVIT/MIN/PREN/FOL AC/IRON TABLET 1 TAB PO (07:48)
[2023-08-25] MEDS: LANOLIN (LANSINOH) 7.5 GM CREAM 1 APPLIC TOPICAL (08:00)
[2023-08-25 09:05] LABS: Rapid Plasma Reagin Non-Reactive (NonReactive)
--- NOTE | 2023-08-25 16:08 | PC.NURSE ---
[id number] Consulted with mother concerning needs and she shared her ability to independently latch infant optimally without pain or nipple misshaping. Mother is feeding appropriately for growth of and understands stimulating infant to eat if needed. Infant has had appropriate feedings in the last 24 hours meets the outcomes for weight, output, blood sugar and jaundice at this time. Reinforced understanding of milk production, transition of milk, signs of adequate intake, transition of stool, prevention/relief of engorgement, plugged ducts, mastitis, responsive watching for feeding cues, the different methods of stimulating to breastfeed 1-3 hours after the start of the last feeding, community resources, and when to call a provider using the resource of the feeding sheet along with the mom and baby guide. Mother demonstrated effectively latching her to the breast. We reviewed together positive signs of swallowing and good intake using the feeding sheet and mom/baby guide for additional resources. Mother voiced understanding of the information shared, is confident to continue effectively her infant at home, when to call for assistance, denies any additional assistance or education at this time. Reported to the Primary RN.
[2023-08-26 09:21] VITALS: BP 101/70; PULSE 90; RESP 18; TEMP 36.9; O2SAT 90
== END 2023-08-25 12:14 | disposition home or self-care (01) | DRG 560 ==
LOC: ANHLDR 11:49 → ANHOB2 22:00
PROVIDERS: Admitting Provider Obstetrics & Gynecology; Visit Provider Obstetrics & Gynecology
DX: O62.3 Precipitate labor (principal); O70.1 Second degree perineal laceration during delivery; Z3A.39 39 weeks gestation of pregnancy; Z37.0 Single live birth
CPT/HCPCS: 36415; 82948; 84112; 85014; 85018; 85025; 86592; 86850; 86900; 86901; A9270; J2210; J2590; J2795; J3010; J7120